=== PATIENT | female | born 1945 | race Caucasian/White ===

== ENCOUNTER → 2021-03-27 | Outpatient (CLI) | payer MEDICARE, BC ==
[~2021-03-27] MED LIST: FLEXERIL 10 MG10 MG PO; PREDNISONE 50 M50 MG PO
[2021-03-27 14:46] LABS: HEMOGLOBIN 12.4 gm/dl (12.3-15.3); RED BLOOD COUNT 3.81 M/UL (4.00-5.10)
[2021-03-28 08:13] LABS: RHEUMATOID ARTHRITIS FACTOR <10.0 IU/mL (<14.0)
== END ==
LOC: LAB 14:12
PROVIDERS: Internal Medicine
DX: M25.571 Pain in right ankle and joints of right foot (principal); M25.572 Pain in left ankle and joints of left foot; S93.326A Dislocation of tarsometatarsal joint of unspecified foot, initial encounter; E66.9 Obesity, unspecified; M19.072 Primary osteoarthritis, left ankle and foot; M19.071 Primary osteoarthritis, right ankle and foot; M85.88 Other specified disorders of bone density and structure, other site
CPT/HCPCS: 36415; 73630; 80053; 83520; 85025; 85652; 86140; 86200; 86431